=== PATIENT | male | born 2000 | race African-American/Black ===

== ENCOUNTER 2023-08-11 02:04 | Emergency (ER) | payer OTHER ==
[~2023-08-11] VITALS: Ht 170.2 cm; Wt 60.0 kg
[2023-08-11 02:09] VITALS: BP 114/72; PULSE 94; RESP 18; TEMP 98; O2SAT 100
[2023-08-11] MEDS ORDERED: ACETAMINOPHEN 325MG TABLET PO ONE (03:30)
[2023-08-11] MEDS ORDERED: KETOROLAC 15MG/ML VIAL IM ONE (04:30)
[2023-08-11] MEDS ORDERED: ACETAMINOPHEN 325MG TABLET PO NR (06:10)
[2023-08-11] MEDS ORDERED: KETOROLAC 15MG/ML VIAL IM NR (06:11)
== END 2023-08-11 07:42 | disposition left against medical advice (07) ==
LOC: ER 02:04
DX: S00.11XA Contusion of right eyelid and periocular area, initial encounter (principal); Y08.89XA Assault by other specified means, initial encounter; Y93.89 Activity, other specified; Y92.89 Other specified places as the place of occurrence of the external cause; Y99.8 Other external cause status
CPT/HCPCS: 99284; 70450; 70486; J1885